=== PATIENT | female | born 1960 | race Caucasian/White ===

== ENCOUNTER 2025-04-13 07:30 | Outpatient (RCR) | payer MEDICARE, OTHER, SELFPAY ==
[2025-04-13 08:15] VITALS: BP 128/63
[2025-04-13] MEDS: NSS 500 IV (08:24)
== END 2025-04-23 23:59 | disposition home or self-care (01) ==
LOC: OID 07:30
PROVIDERS: ATTENDING PHYSICIAN Nurse Practitioner Acute Care
DX: I35.0 Nonrheumatic aortic (valve) stenosis (principal)
CPT/HCPCS: 75572; 96360; 96361; Q9967

== ENCOUNTER → 2025-05-15 09:21 | Outpatient (REF) | payer MEDICARE, OTHER, SELFPAY ==
[2025-05-15 09:42] VITALS: BP 150/82; BP_SYST 94
[2025-05-15 10:35] VITALS: BP 106/57; BP_SYST 82
== END ==
LOC: RAD 09:21
PROVIDERS: ATTENDING PHYSICIAN Nurse Practitioner Acute Care; FAMILY PHYSICIAN Nurse Practitioner Family
DX: I35.0 Nonrheumatic aortic (valve) stenosis (principal)
CPT/HCPCS: 32555; 71045; 74174; 88112; 88305; Q9967